=== PATIENT | female | born 1955 | race African-American/Black ===

== ENCOUNTER 2018-05-30 04:10 | Emergency (ER) | payer MEDICARE ==
[~2018-05-30 04:10] MED LIST: Amiodarone 150 MG/3 ML VIAL ONE; Calcium Chloride 1 GM/10 ML Abboject SYRINGE ONE; EPINEPHrine 1 MG/10 ML Abboject SYRINGE ONE; Sodium Bicarb 50 MEQ/50 ML Abboject 8.4% SYRINGE ONE
== END 2018-05-30 04:29 | disposition expired ==
LOC: ERS 04:10
DX: I46.9 Cardiac arrest, cause unspecified (principal); R06.03 Acute respiratory distress; I25.2 Old myocardial infarction; E03.9 Hypothyroidism, unspecified; I11.0 Hypertensive heart disease with heart failure; I50.9 Heart failure, unspecified
CPT/HCPCS: 92950; 96374; 96375; J0171; J0282